=== PATIENT | male | born 1960 | race Caucasian/White ===

== ENCOUNTER 2017-11-07 15:57 | Inpatient (IN) | payer MEDICAID, OTHER ==
[~2017-11-07] VITALS: Ht 170.2 cm; Wt 93.0 kg
[~2017-11-07 15:57] MED LIST: ASPI1POW PO; ATEN25TA7 PO; LISI-420 PO; METF100028 PO; PANT40EC PO
[2017-11-07 16:22] VITALS: BP 119/63
--- NOTE | 2017-11-07 16:28 | NUR ---
PT AMBULATES TO BED 4
--- NOTE | 2017-11-07 16:45 | NUR ---
68M BIB SELF WITH SYNCOPAL EPISODE EARLIER TODAY AT UNKNOWN TIME PER PATIENT. PT STS WAS OUTSTIDE THEN PASSED OUT. PT ALSO REPORTS OF POLYDIPSIA OR POLYURIA. PT IS AOX4 TO PERSON,PLACE, SITUATION, AND TIME. RR ARE EVEN AND UNLABORED. MULTIPLE SKIN TEARS TO RIGHT FOREARM AND RIGHT LEG. SLIGHT HEMATOMA NOTED TO RIGHT UNDER EYE. NO FACIAL/SMILE ASYMMETRY NOTED. PT WITH STEADY GAIT. EQUAL PUSH/PULL TO BL LOWER LEGS. EQUAL JOB ANALYST TO BL ARMS. PT TO CARDIAC, BP, PULSE OX, AND PULSE MONTORING. PT CHANGED INTO GOWN. NAD. WILL CONTINUE TO MONITOR.
[2017-11-07] MEDS ORDERED: NACL 0.9% 1,000 ML IV ONE ×2 (16:50→18:30)
--- NOTE | 2017-11-07 17:03 | NUR ---
PT TO CT VIA GARRICK ACCOMPANIED BY RADIO TECHS
[2017-11-07] MEDS ORDERED: INSULIN REGULAR, HUMAN 100 UNIT/ML VIAL SUBQ ONE ×2 (17:10→18:30)
[2017-11-07 17:19] LABS: BASOPHILS % (AUTO) 0.8 % (0.0-2.0); EOSINOPHILS # (AUTO) 0.1 K/uL (0-0.4); EOSINOPHILS % (AUTO) 1.2 % (0.0-4.0); HEMATOCRIT 36.6 % (36-52); HEMOGLOBIN 12.3 g/dL (12.0-18.0); LYMPHOCYTES # (AUTO) 1.7 K/uL (2.0-11.5); LYMPHOCYTES % (AUTO) 33.7 % (20.5-51.1); MEAN CORPUSCULAR HEMOGLOBIN 33 pg (27-31); MEAN CORPUSCULAR HGB CONC 34 g/dL (33-37); MONOCYTES # (AUTO) 0.5 K/uL (0.8-1.0); MONOCYTES % (AUTO) 10.1 % (1.7-9.3); NEUTROPHILS # (AUTO) 2.7 K/uL (1.8-7.7); NEUTROPHILS % (AUTO) 54.2 % (42.2-75.2); PLATELET COUNT (AUTO) 183 K/uL (140-450); RED BLOOD CELL COUNT(AUTO) 3.73 MIL/uL (4.20-6.10); RED CELL DISTRIBUTION WIDTH 13.8 % (11.6-13.7)
--- NOTE | 2017-11-07 17:20 | NUR ---
PT RETURNED FROM CT VIA GURNEY TO RM 4 WITHOUT INCIDIENT
[2017-11-07 17:47] LABS: ALBUMIN 3.3 g/dL (3.4-5.0); ANION GAP 16.9 (8-16); CARBON DIOXIDE 23.7 mmol/L (21-32); CREATININE 1.1 mg/dL (0.7-1.3); POTASSIUM 4.6 mmol/L (3.5-5.1); TOTAL BILIRUBIN 0.2 mg/dL (0.0-1.0)
[2017-11-07] MEDS ORDERED: DEXTROSE 50% 50 ML SYR IVP PRN (18:15)
[2017-11-07] MEDS ORDERED: ZOLPIDEM 5 MG TAB PO PRN (18:15)
[2017-11-07] MEDS ORDERED: ONDANSETRON 4 MG/2 ML VIAL IVP PRN (18:15)
[2017-11-07] MEDS ORDERED: KETOROLAC 30 MG/ML VIAL IVP ONE (18:40)
[2017-11-07 19:24] LABS: FREE T4 (FREE THYROXINE) 0.85 ng/dL (0.76-1.46); THYROID STIMULATING HORMONE 2.59 uIU/mL (0.34-3.74)
[2017-11-07 19:32] LABS: PROTHROMBIN TIME 9.2 secs (10.8-13.4)
[2017-11-07 19:35] VITALS: BP 124/70
--- NOTE | 2017-11-07 19:35 | NUR ---
RECEIVED REPORT FROM ER NURSE AT BEDSIDE FOR CONTINUITY OF CARE. PT AAOX4. PT AMBULATORY. MINOR ABRASIONS ON RIGHT ARM. IV NOTED LAC 22G. NS WIDE OPEN. NO SOB NO S/S OF DISTRESS ON RA. BED LOWERED PT ORIENTED TO ROOM WILL CONTINUE TO MONITOR.
--- NOTE | 2017-11-07 19:36 | NUR ---
Patient will be admitted to care of DR. PORTER. Admited to MED SURG. Will go to room 119B. Belongings list completed. Report to THIEN JOHNS.
[2017-11-07] MEDS ORDERED: METF500T PO (19:41)
[2017-11-07] MEDS ORDERED: LISI10TA11 PO (19:41)
[2017-11-07] MEDS ORDERED: INSU100I7 SQ (19:41)
[2017-11-07] MEDS ORDERED: GLIP10TA3 PO (19:42)
[2017-11-07] MEDS ORDERED: MECLIZINE 25 MG TAB PO PRN (20:00)
[2017-11-07] MEDS ORDERED: MILD SOAP AND WATER TP PRN (20:30)
[2017-11-07] MEDS ORDERED: BACITRACIN OINT 15000 UNITS/30 GM TUBE TP PRN (20:30)
[2017-11-07] MEDS ORDERED: NON ADHERENT DRESSING TP PRN (20:30)
[2017-11-07] MEDS ORDERED: NYSTATIN/TRIAMCINOLONE CRM 15 GM TUBE TP SCH (21:00)
[2017-11-07] MEDS: NACL 0.9% 1,000 ML IV SCH (21:08)
[2017-11-07] MEDS: DOCUSATE SODIUM 100 MG GELCAP PO SCH (21:09)
[2017-11-07] MEDS: BLOOD GLUCOSE MONITORING 1 DEV DEV FS SCH (21:11)
[2017-11-07] MEDS: INSULIN LISPRO SLIDING SCALE 100 UNITS/ML VIAL SUBQ PRN (21:18)
[2017-11-07] MEDS: ACETAMINOPHEN 325 MG TAB PO PRN (22:36)
--- NOTE | 2017-11-07 23:36 | NUR ---
PT HAD PAIN IN NECK AND REQUESTED PAIN RELIEVER. ADMIN TYLENOL 1HR AND ICE PACK. PT IS CURRENTLY SLEEPING. PAIN MED EFFECTIVE. WILL CONTINUE TO MONITOR.
[2017-11-08] VITALS: BP 125/89
--- NOTE | 2017-11-08 00:22 | NUR ---
NYSTATIN AND BACITRACIN NOT AVAILABLE IN MED CART PLEASE FOLLOW UP IN AM. THANKS
--- NOTE | 2017-11-08 00:55 | NUR ---
PER MD PT STATED HE HAS BLE GROIN RASH. BUT REFUSED FOR ME TO ASSESS RASH.
[2017-11-08 01:04] LABS: APPEARANCE,URINE CLEAR (CLEAR); BILIRUBIN,URINE NEGATIVE (NEGATIVE); BLOOD, URINE NEGATIVE (NEGATIVE); COLOR,URINE YELLOW (YELLOW); LEUKOCYTE ESTERASE ,URINE NEGATIVE (NEGATIVE); NITRITE, URINE NEGATIVE (NEGATIVE); PH,URINE 5.5 (5.0-9.0); UGLUCOSE 3+ (NEGATIVE)
--- NOTE | 2017-11-08 01:29 | NUR ---
FAXED REQUEST SENT TO [facility]. FAX [phone].
--- NOTE | 2017-11-08 01:45 | NUR ---
PER MD ORDERS FOR ORTHOSTATIC HYPOTENSION. PT SITTING BP 125/89. STANDING UP 127/80. NO DROP IN BP. WILL CONTINUE TO MONITOR.
[2017-11-08] MEDS: NACL 0.9% 1,000 ML IV SCH ×3 (02:15→16:59)
[2017-11-08 02:36] LABS: RBC,URINE NONE SEEN /HPF (0-5); WBC,URINE NONE SEEN /HPF (0-5)
[2017-11-08 04:00] VITALS: BP 141/88
[2017-11-08] MEDS: BLOOD GLUCOSE MONITORING 1 DEV DEV FS SCH ×4 (05:09→20:24)
[2017-11-08] MEDS: INSULIN LISPRO SLIDING SCALE 100 UNITS/ML VIAL SUBQ PRN ×4 (05:12→20:30)
[2017-11-08] MEDS: ACETAMINOPHEN 325 MG TAB PO PRN (05:15)
[2017-11-08 06:52] LABS: BASOPHILS % (AUTO) 0.6 % (0.0-2.0); EOSINOPHILS # (AUTO) 0.1 K/uL (0-0.4); EOSINOPHILS % (AUTO) 3.4 % (0.0-4.0); HEMATOCRIT 33.1 % (36-52); HEMOGLOBIN 11.3 g/dL (12.0-18.0); LYMPHOCYTES # (AUTO) 1.8 K/uL (2.0-11.5); LYMPHOCYTES % (AUTO) 41.8 % (20.5-51.1); MEAN CORPUSCULAR HEMOGLOBIN 34 pg (27-31); MEAN CORPUSCULAR HGB CONC 34 g/dL (33-37); MEAN CORPUSCULAR VOLUME 98.3 fL (80-94); MONOCYTES # (AUTO) 0.5 K/uL (0.8-1.0); MONOCYTES % (AUTO) 10.6 % (1.7-9.3); NEUTROPHILS # (AUTO) 1.9 K/uL (1.8-7.7); NEUTROPHILS % (AUTO) 43.6 % (42.2-75.2); PLATELET COUNT (AUTO) 149 K/uL (140-450); RED BLOOD CELL COUNT(AUTO) 3.37 MIL/uL (4.20-6.10); RED CELL DISTRIBUTION WIDTH 14.3 % (11.6-13.7); WHITE BLOOD COUNT (AUTO) 4.3 K/uL (4.8-10.8)
[2017-11-08 07:11] LABS: ANION GAP 6.7 (8-16); CARBON DIOXIDE 30.6 mmol/L (21-32); CREATININE 0.7 mg/dL (0.7-1.3); POTASSIUM 4.3 mmol/L (3.5-5.1)
[2017-11-08 07:14] LABS: CHOL/HDL RATIO 3.6 (1-4.5)
[2017-11-08 07:22] LABS: PHOSPHORUS 4.9 mg/dL (2.5-4.9)
--- NOTE | 2017-11-08 07:29 | NUR ---
ENDORSED REPORT TO DAYSHIFT NURSE AT BEDSIDE FOR CONTINUITY OF CARE.
[2017-11-08 07:58] VITALS: BP 147/88
[2017-11-08 08:47] LABS: BARBITURATE, URINE NEG. ng/ml (NEG <=200); BENZODIAZEPINE, URINE NEG. ng/mL (NEG <=200); CANNABINOID, URINE NEG. ng/mL (NEG <=50); COCAINE, URINE NEG. ng/mL (NEG <=300); OPIATE, URINE NEG. ng/mL (NEG <=2000); PHENCYCLIDINE SCREEN,URINE NEG. ng/mL (NEG <=25)
[2017-11-08] MEDS ORDERED: NON-FORMULARY ITEM (Insulin Glargine,Hum.rec.anlog (Basaglar Kwikpen U-100) 30 UNIT) SQ SCH (09:00)
[2017-11-08] MEDS ORDERED: NON-FORMULARY ITEM (Aspirin 81 MG) PO SCH (09:00)
--- NOTE | 2017-11-08 09:12 | NUR ---
PATIENT HAS BEEN SCREENED AND CATEGORIZED HIGH NUTRITION RISK. PATIENT WILL BE SEEN WITHIN 1-2 DAYS OF ADMISSION. 11/08/17 11/09/[address]
--- NOTE | 2017-11-08 09:15 | NUR ---
PT COMPLAINING OF PAIN TO HIS RT. SHOULDER AND THE LEG. NOTIFIED DR BAUTISTA, WAITING FOR THE MED ORDERED. WILL CONTINUE TO MONITOR PT.
--- NOTE | 2017-11-08 09:25 | NUR ---
CALLED NUCLEAR MEDS DEPARTMENT IN [facility] ABOUT PT HAIDA TEST ORDERED BY DR BAUTISTA. PT KEPT NPO EXCEPT MEDS AFTER BREAKFAST THIS MORNING. CALLED NUCLEAR MED DEPTX2. LEFT THE VOICE MAIL WITH PT UPDATE. WILL CONTINUE TO MONITOR PT.
[2017-11-08] MEDS: ASPIRIN 81 MG TAB.CHEW PO SCH (09:43)
[2017-11-08] MEDS: metFORMIN 500 MG TAB PO SCH ×3 (09:44→17:00)
[2017-11-08] MEDS: LISINOPRIL 10 MG TAB PO SCH (09:44)
[2017-11-08] MEDS: DOCUSATE SODIUM 100 MG GELCAP PO SCH ×2 (09:44→20:24)
[2017-11-08] MEDS: CALCIUM ACETATE 667 MG TAB PO SCH (09:44)
[2017-11-08] MEDS: glipiZIDE 10 MG TAB PO SCH (09:45)
[2017-11-08] MEDS: ATENOLOL 25 MG TAB PO SCH (09:45)
[2017-11-08] MEDS: INSULIN LANTUS 100 UNITS/ML 10 ML VIAL SUBQ SCH (09:51)
[2017-11-08] MEDS: KETOROLAC 15 MG/ML VIAL IVP PRN ×2 (10:34→16:59)
--- NOTE | 2017-11-08 11:30 | NUR ---
CHECKED ON PT. PT WITH [email or web address] FOR ECHO. WILL CONTINUE TO MONITOR PT.
[2017-11-08 12:00] VITALS: BP 155/93
--- NOTE | 2017-11-08 12:00 | NUR ---
CHECKED ON PT. TOOK HIS VS. BS 288. ADMINISTERED 6 UNITS OF INSULIN. PT WITH THE RATE QUOTING OPERATOR. PT STATES TO HAVE TOLERABLE PAIN. NO SIGN OF DISTRESS. WILL CONTINUE TO MONITOR PT.
[2017-11-08] MEDS: NON ADHERENT DRESSING TP SCH (13:00)
[2017-11-08] MEDS: MILD SOAP AND WATER TP SCH (13:30)
--- NOTE | 2017-11-08 13:30 | NUR ---
CHANGED DRESSING ORDERED ON RT FA OF PT. APPLIED OINTMENT ORDERED . PT TOLERATED WELL. WILL CONTINUE TO MONITOR PT.
--- NOTE | 2017-11-08 13:30 | NUR ---
BACITRACIN AND THE NYSTATIN OINTMENT NOT THE CASSETE.PHARMACY AWARE. WAITING FOR PHARMACY TO PLACE ORDER AND MAKE AVAILABLE.
[2017-11-08] MEDS ORDERED: BACITRACIN OINT 500 UNITS/GM PKT TP PRN (13:50)
[2017-11-08] MEDS: NYSTATIN/TRIAMCINOLONE OINT 15 GM TUBE TP SCH ×2 (14:17→20:25)
[2017-11-08] MEDS ORDERED: ARTIFICIAL TEARS OPHTH OINT 3.5 GM TUBE OP PRN (14:35)
--- NOTE | 2017-11-08 14:36 | NUR ---
PT WITH NUCLEAR MED TECH. PER TECH, PT NEEDS TO HAVE THE STANDING ORDER OF MORPHINE 2 MG FOR PAIN MANAGEMENT. DR. BAUTISTA AWARE. WAITING FOR THE ORDER.
--- NOTE | 2017-11-08 14:42 | NUR ---
BRIANA NOTE RECEIVED CALL FROM [facility] BRIANA INFANTE PH# [phone] WHO SAID TO FAX REVIEWS TO [facility] [phone]. PER [facility] BRIANA INFANTE REVIEWS SHOULD ONLY BE SENT TO [facility] AND FOR ANY DC NEEDS TO CONTACT [facility]. INITIAL REVIEW FAXED TO [facility] [phone] BRIANA INFANTE PH# [phone].
[2017-11-08 16:00] VITALS: BP 150/84
--- NOTE | 2017-11-08 19:24 | NUR ---
ENDORSED PT TO PM NURSE. PT IN STABLE CONDITION.
--- NOTE | 2017-11-08 19:25 | NUR ---
RECEIVED FROM AM RN WALKING AROUND H IS BED. A/O X 4.OM X 4. DENIES ANY PAIN AT THIS TIME. GOOD AFFECT. TELEMETRY MONITORING. NO SOB. CARE PLANS FOR THE NIGHT DISCUSSED WITH HIM . CALL LIGHT WITH IN REACH. ABLE TO VERBALIZE NEEDS WELL. IVF SITE TO LAC INTACT AND NO INFILTRATION.
[2017-11-08 20:07] VITALS: BP 140/86
--- NOTE | 2017-11-08 22:30 | NUR ---
PT. TRYING TO SLEEP . WATCHING TV. ABLE TO VERBALIZE NEEDS WELL. NO PAIN COMPLAINTS DONE. PROVIDED SUGAR FREE JELLO REQUESTED.
[2017-11-09] VITALS: BP 128/89
--- NOTE | 2017-11-09 | NUR ---
PT. PROVIDED WITH MIDNIGHT SNACK RT DM. A/O X 4. ROM X 4. NO COMPLAINTS DONE. TELEMETRY MONITORING.
--- NOTE | 2017-11-09 01:48 | NUR ---
PT. SLEEPING. NO RESTLESSNESS. TELEMETRY MONITORING. CALL LIGHT WITH IN REACH.
[2017-11-09] MEDS: NACL 0.9% 1,000 ML IV SCH ×3 (02:15→18:15)
--- NOTE | 2017-11-09 02:31 | NUR ---
WOKE UP AT THIS TIME. IVF DISCONNECTED REQUESTED RT WENT TO [facility] TO BM. A/O X 4. ROM X 4. INDEPENDENT. TELEMETRY MONITORING.
[2017-11-09] MEDS: KETOROLAC 15 MG/ML VIAL IVP PRN (03:44)
[2017-11-09 04:00] VITALS: BP 143/86
[2017-11-09] MEDS: BLOOD GLUCOSE MONITORING 1 DEV DEV FS SCH ×4 (05:43→20:54)
[2017-11-09] MEDS: INSULIN LISPRO SLIDING SCALE 100 UNITS/ML VIAL SUBQ PRN ×4 (05:43→20:52)
[2017-11-09 06:37] LABS: BASOPHILS % (AUTO) 0.7 % (0.0-2.0); EOSINOPHILS # (AUTO) 0.1 K/uL (0-0.4); EOSINOPHILS % (AUTO) 2.9 % (0.0-4.0); HEMATOCRIT 34.2 % (36-52); HEMOGLOBIN 11.6 g/dL (12.0-18.0); LYMPHOCYTES # (AUTO) 1.5 K/uL (2.0-11.5); LYMPHOCYTES % (AUTO) 36.1 % (20.5-51.1); MEAN CORPUSCULAR HEMOGLOBIN 33 pg (27-31); MEAN CORPUSCULAR HGB CONC 34 g/dL (33-37); MEAN CORPUSCULAR VOLUME 98.1 fL (80-94); MONOCYTES # (AUTO) 0.5 K/uL (0.8-1.0); MONOCYTES % (AUTO) 11.4 % (1.7-9.3); NEUTROPHILS # (AUTO) 2.1 K/uL (1.8-7.7); NEUTROPHILS % (AUTO) 48.9 % (42.2-75.2); PLATELET COUNT (AUTO) 150 K/uL (140-450); RED BLOOD CELL COUNT(AUTO) 3.48 MIL/uL (4.20-6.10); RED CELL DISTRIBUTION WIDTH 14.3 % (11.6-13.7); WHITE BLOOD COUNT (AUTO) 4.2 K/uL (4.8-10.8)
--- NOTE | 2017-11-09 06:42 | NUR ---
SLEPT WELL AFTER PT. HAD BM. NO SOB. MEDICATED BY ANOTHER RN COVERING ME WITH TORADOL X 1. VERBALIZING WELL. NO SOB. TELEMETRY MONITORING. NO S/S OF HYPERKALEMIA OR HYPOKALEMIA. EDUCATED PT. RE: DIABETES.
[2017-11-09 06:52] LABS: CREATININE 0.5 mg/dL (0.7-1.3)
[2017-11-09 07:07] LABS: MAGNESIUM 1.9 mg/dL (1.8-2.4)
--- NOTE | 2017-11-09 07:23 | NUR ---
ENDORSED TO THE NEXT RN FOR CONTINUITY OF CARE. VERBALIZES WELL. NO SOB. TELEMETRY MONITORING. AMBULATES WELL WITHOUT ASSIST.
[2017-11-09 08:00] VITALS: BP 143/84
[2017-11-09] MEDS: MILD SOAP AND WATER TP SCH (09:00)
[2017-11-09] MEDS: DOCUSATE SODIUM 100 MG GELCAP PO SCH ×2 (09:00→20:54)
[2017-11-09] MEDS: NYSTATIN/TRIAMCINOLONE OINT 15 GM TUBE TP SCH ×2 (09:00→20:55)
--- NOTE | 2017-11-09 09:25 | NUR ---
CM NOTE CONCURRENT REVIEW FAXED TO [facility] [phone] BRIANA INFANTE # [phone].
--- NOTE | 2017-11-09 09:42 | NUR ---
NOTIFIED DR. BAUTISTA OF PATIENT'S BLOOD SUGAR BEING AT 531. DR. BAUTISTA ORDERED 10 UNITS REGULAR INSULIN. PATIENT REMAINS ASYMPTOMATIC. WILL RECHECK BLOOD SUGAR.
[2017-11-09] MEDS: INSULIN LANTUS 100 UNITS/ML 10 ML VIAL SUBQ SCH (09:44)
[2017-11-09] MEDS: CALCIUM ACETATE 667 MG TAB PO SCH (09:49)
[2017-11-09] MEDS: LISINOPRIL 10 MG TAB PO SCH (09:49)
[2017-11-09] MEDS: ATENOLOL 25 MG TAB PO SCH (09:49)
[2017-11-09] MEDS: ASPIRIN 81 MG TAB.CHEW PO SCH (09:49)
[2017-11-09] MEDS: glipiZIDE 10 MG TAB PO SCH (09:50)
[2017-11-09] MEDS: metFORMIN 500 MG TAB PO SCH ×3 (09:50→16:43)
--- NOTE | 2017-11-09 09:57 | NUR ---
RECHECKED PATIENT'S BLOOD SUGAR. PATIENTS BLOOD SUGAR IS 545. WILL ADMINISTER REGULAR INSULIN 10 UNITS. PATIENT REMAINS ASYMPTOMATIC.
--- NOTE | 2017-11-09 11:04 | NUR ---
PAGED DR. BAUTISTA REGARDING PATIENT'S BLOOD SUGAR AT 457. PATIENT REMAINS ASYMPTOMATIC. AWAITING CALL BACK
[2017-11-09] MEDS: MORPHINE SULFATE 2 MG/ML SYR IVP PRN ×2 (11:41→18:40)
[2017-11-09 12:00] VITALS: BP 130/82
[2017-11-09] MEDS: NON ADHERENT DRESSING TP SCH ×2 (13:00→16:41)
--- NOTE | 2017-11-09 14:00 | NUR ---
PATIENT RESTING AT THIS TIME. NO DISTRESS NOTED. WILL CONTINUE TO MONITOR PATIENT.
[2017-11-09 16:00] VITALS: BP 127/73
--- NOTE | 2017-11-09 16:18 | NUR ---
11/09/17 RD INITIAL ASSESSMENT COMPLETED PLEASE REFER TO NUTRITION ASSESSMENT UNDER CARE ACTIVITY FOR ESTIMATED NUTRITIONAL NEEDS. 1. CONTINUE [facility] 60 GM DIET TOLERATED 2. PROVIDED [facility] DIET EDUCATION 3. RD TO FOLLOW-UP 3-5 DAYS, MODERATE RISK CHANDRAKANT ARAYA RD
--- NOTE | 2017-11-09 17:25 | NUR ---
NO DISTRESS NOTED. PATIENT RESTING AT THIS TIME. WILL CONTINUE TO MONITOR PATIENT.
--- NOTE | 2017-11-09 19:15 | NUR ---
GAVE REPORT TO NIGHTSHIFT NURSE AT BEDSIDE. PATIENT IN STABLE CONDITION
--- NOTE | 2017-11-09 19:15 | NUR ---
RECEIVED PATIENT AWAKE LYING ON BED. PATIENT AA0X4, AMBULATORY, COOPERATIVE. EXPLAIN PLAN OF CARE AND VERBALIZED UNDERSTANDING. FALL PRECAUTION APPLIED. WILL CONTINUE TO MONITOR.
[2017-11-09 20:00] VITALS: BP 127/77
--- NOTE | 2017-11-09 21:00 | NUR ---
SEEN PATIENT WALKING THE HALLWAY AND TOLD PATIENT BACK TO BED FOR HIS SCHEDULE MEDICATION. PATIENT OBEYS COMMANDS AND BS TAKEN AND RECORDED WITH COVERAGE. INSULIN GIVEN PER PROTOCOL. NO S/S OF DISTRESS NOTED AT THIS TIME. CALL LIGHT WITHIN REACH. ALL NEED ATTENDED. WILL CONTINUE TO MONITOR.
[2017-11-10] VITALS: BP 140/79
[2017-11-10] MEDS: NACL 0.9% 1,000 ML IV SCH ×2 (02:15→10:15)
--- NOTE | 2017-11-10 02:47 | NUR ---
CHECKED PATIENT ASLEEP ON BED IN COMFORTABLE POSITION. FALL PRECAUTION APPLIED. NO S/S DISTRESS NOTED. CALL LIGHTS WITHIN REACH. WILL CONTINUE TO MONITOR.
[2017-11-10 03:58] VITALS: BP 138/72
--- NOTE | 2017-11-10 04:00 | NUR ---
SEEN PATIENT ASLEEP ON BED. V/S TAKEN AND RECORDED. NO S/S OF DISTRESS NOTED AT THIS TIME. CALL LIGHT WITHIN REACH .WILL CONTINUE TO MONITOR.
[2017-11-10] MEDS: INSULIN LISPRO SLIDING SCALE 100 UNITS/ML VIAL SUBQ PRN ×2 (06:24→13:04)
[2017-11-10] MEDS: BLOOD GLUCOSE MONITORING 1 DEV DEV FS SCH ×2 (06:25→11:30)
[2017-11-10] MEDS: MORPHINE SULFATE 2 MG/ML SYR IVP PRN (06:35)
[2017-11-10 06:50] LABS: BASOPHILS % (AUTO) 0.9 % (0.0-2.0); EOSINOPHILS # (AUTO) 0.2 K/uL (0-0.4); EOSINOPHILS % (AUTO) 3.8 % (0.0-4.0); HEMATOCRIT 34.7 % (36-52); HEMOGLOBIN 11.7 g/dL (12.0-18.0); LYMPHOCYTES % (AUTO) 40.7 % (20.5-51.1); MEAN CORPUSCULAR HEMOGLOBIN 33 pg (27-31); MEAN CORPUSCULAR HGB CONC 34 g/dL (33-37); MEAN CORPUSCULAR VOLUME 98.5 fL (80-94); MONOCYTES # (AUTO) 0.6 K/uL (0.8-1.0); MONOCYTES % (AUTO) 12.5 % (1.7-9.3); NEUTROPHILS % (AUTO) 42.1 % (42.2-75.2); PLATELET COUNT (AUTO) 162 K/uL (140-450); RED BLOOD CELL COUNT(AUTO) 3.52 MIL/uL (4.20-6.10); RED CELL DISTRIBUTION WIDTH 14.4 % (11.6-13.7); WHITE BLOOD COUNT (AUTO) 4.9 K/uL (4.8-10.8)
[2017-11-10 07:23] LABS: MAGNESIUM 1.8 mg/dL (1.8-2.4); PHOSPHORUS 4.3 mg/dL (2.5-4.9)
--- NOTE | 2017-11-10 07:30 | NUR ---
RECEIVED REPORT FROM NIGHTSHIFT NURSE AT BEDSIDE. PATIENT HAS AN IV NOTED ON HIS LEFT AC 20 G RUNNING NS AT 125 ML/HR. PATIENT DOES NOT COMPLAIN OF PAIN OR SHOW ANY SIGN OF DISTRESS. PATIENT PRESENTS IN HIGH FOWLERS POSITION. PATIENT ALERT AND ORIENTED X4. UPDATED BOARD IN PATIENT'S ROOM. CALL LIGHT WITHIN REACH OF PATIENT. WILL CONTINUE TO MONITOR PATIENT.
--- NOTE | 2017-11-10 07:30 | NUR ---
GAVE REPORT TO AM SHIFT RN AT BEDSIDE FOR CONTINUITY OF CARE. PATIENT IN STABLE CONDITION.
[2017-11-10 07:33] LABS: ANION GAP 5.1 (8-16); CARBON DIOXIDE 30.7 mmol/L (21-32); CREATININE 0.6 mg/dL (0.7-1.3); POTASSIUM 3.8 mmol/L (3.5-5.1)
[2017-11-10 08:00] VITALS: BP 149/87
[2017-11-10] MEDS: ATENOLOL 25 MG TAB PO SCH (08:32)
[2017-11-10] MEDS: metFORMIN 500 MG TAB PO SCH ×2 (08:32→13:02)
[2017-11-10] MEDS: glipiZIDE 10 MG TAB PO SCH (08:33)
[2017-11-10] MEDS: ASPIRIN 81 MG TAB.CHEW PO SCH (08:33)
[2017-11-10] MEDS: LISINOPRIL 10 MG TAB PO SCH (08:33)
[2017-11-10] MEDS: NYSTATIN/TRIAMCINOLONE OINT 15 GM TUBE TP SCH (09:00)
[2017-11-10] MEDS ORDERED: INSULIN LANTUS 100 UNITS/ML 10 ML VIAL SUBQ SCH (09:00)
[2017-11-10] MEDS: DOCUSATE SODIUM 100 MG GELCAP PO SCH (09:00)
[2017-11-10] MEDS: MILD SOAP AND WATER TP SCH (09:00)
--- NOTE | 2017-11-10 09:20 | NUR ---
PATIENT RESTING AT THIS TIME. NO DISTRESS NOTED
--- NOTE | 2017-11-10 09:57 | NUR ---
CM NOTE CONCURRENT REVIEW FAXED TO [facility] [phone] BRIANA INFANTE # [phone].
[2017-11-10] MEDS ORDERED: INSU100I7 SQ (10:28)
[2017-11-10] MEDS ORDERED: METF500T PO (10:28)
[2017-11-10 12:00] VITALS: BP 147/85
--- NOTE | 2017-11-10 12:30 | NUR ---
PATIENT ASLEEP AT THIS TIME. WILL CONTINUE TO MONITOR PATIENT.
--- NOTE | 2017-11-10 13:00 | NUR ---
PATIENT IS SHOWERING. STANDING AT DOORSIDE IF PATIENT NEEDS ANYTHING. WILL CONTINUE TO MONITOR PATIENT.
--- NOTE | 2017-11-10 14:05 | NUR ---
PATIENT SIGNED ALL DISCHARGE INSTRUCTIONS. PATIENT IS AWARE OF PRESCRIPTIONS. PATIENT HAS A BUS PASS. REMOVED IDENTIFICATION BAND. REMOVED CATHETER WITH IT STILL INTACT. ACCOMPANIED PATIENT OFF THE UNIT TO THE LOBBY. PATIENT ABLE TO WALK HIMSELF TO LOBBY. PATIENT LEFT IN STABLE CONDITION
== END 2017-11-10 14:05 | disposition home or self-care (01) | DRG 48 ==
LOC: MED 15:57 → MTU 18:28
PROVIDERS: ADMIT General Practice; ATTEND General Practice
DX: G90.9 Disorder of the autonomic nervous system, unspecified (principal); D68.59 Other primary thrombophilia; I42.9 Cardiomyopathy, unspecified; E11.65 Type 2 diabetes mellitus with hyperglycemia; E11.51 Type 2 diabetes mellitus with diabetic peripheral angiopathy without gangrene; E11.69 Type 2 diabetes mellitus with other specified complication; E44.1 Mild protein-calorie malnutrition; E87.1 Hypo-osmolality and hyponatremia; E78.5 Hyperlipidemia, unspecified; I10 Essential (primary) hypertension; S00.83XA Contusion of other part of head, initial encounter; W18.39XA Other fall on same level, initial encounter; S80.01XA Contusion of right knee, initial encounter; B35.6 Tinea cruris; S50.811A Abrasion of right forearm, initial encounter; E83.39 Other disorders of phosphorus metabolism; E66.9 Obesity, unspecified; Z68.32 Body mass index [BMI] 32.0-32.9, adult; Z88.0 Allergy status to penicillin; Z79.82 Long term (current) use of aspirin; Z79.84 Long term (current) use of oral hypoglycemic drugs; Z79.899 Other long term (current) drug therapy; Y93.89 Activity, other specified; Y92.89 Other specified places as the place of occurrence of the external cause; Y99.8 Other external cause status
CPT/HCPCS: 36415; 70450; 71045; 73030; 74150; 78445; 80048; 80053; 80305; 81001; 82009; 82140; 82150; 82948; 83036; 83690; 83735; 83880; 84100; 84439; 84443; 84484; 85025; 85610; 85730; 87081; 93005; 93880; 93925; 93970; 96361; 96372; 96374; 99285; G0482; J1815; J1885; J2270; J2405; J7030; Q0092; Q0163